=== PATIENT | male | born 1965 | race Caucasian/White ===

== ENCOUNTER 2024-03-16 08:03 | Emergency (ER) | payer OTHER, SELFPAY ==
--- NOTE | 2024-03-16 08:12 | ED.EYEPROB ---
HPI - Eye Problem General Chief complaint: Eye Problems Stated complaint: Right Eye Problem Time Seen by Provider: 03/16/24 08:19 Source: patient, RN notes reviewed and old records reviewed Mode of arrival: ambulatory Limitations: no limitations History of Present Illness HPI Narrative: 58 year old male presents to [facility] care with complaints of right eye irritation and watering. He states that he thought he had an eyelash in his right eye last week on Friday and his washed his eye out and it felt better. Patient reports that his eye has continued to feel irritated at times, no sharp pain to his eye or any change in his vision. Patient reports that he flushed his eye again last night and also used some Visine feels some irritation.Visual acuity bilateral eyes 20/30 without correction. MD chief complaint: eye redness Onset (ago): week(s) (1) Onset description: gradual Location: right eye Eye Symptoms: redness and other (watering) Severity: mild Treatments Prior to Arrival: irrigated eye and OTC eye drops Related Data Home Medications Medication Instructions Recorded Confirmed lansoprazole 30 mg capsule,delayed mg 03/16/24 release lisinopril 10 mg tablet mg 03/16/24 meloxicam 15 mg tablet mg 03/16/24 rosuvastatin 5 mg tablet mg 03/16/24 Allergies Allergy/AdvReac Type Severity Reaction Status Date / Time No Known Allergies Allergy Verified 03/16/24 08:15 Review of Systems Review of Systems: CONSTITUTIONAL: Denies fever, chills, or sweats. EYES: Denies visual changes. Reports redness, irritation, watering of right eye, denies any sharp pain to right eye or vision changes. ENT: Denies rhinorrhea, congestion, sore throat, or otalgia. CARDIOVASCULAR: Denies chest pain, palpitations, or edema. RESPIRATORY: Denies cough or dyspnea. SKIN: Denies rash or itching. NEUROLOGIC: Denies headache All systems reviewed & are unremarkable except as noted in HPI and below PMFSH Past Medical History Medical History (Updated 03/16/24 @ 10:18 by Yandy Villafuerte NP) GERD (gastroesophageal reflux disease) Hyperlipidemia Hypertension Social History Social History (Updated 03/16/24 @ 10:19 by Yandy Villafuerte NP) Smoking status: Never smoker Alcohol intake: current Alcohol use details: rare use Substance use type: does not use Gender identity (if verbalized by the patient): Male Comments At time of signature, agree with nursing past medical, surgical, social and family history. There is no relevant family history pertinent to the presenting complaint Exam Narrative: GENERAL: Well-appearing, well-nourished, and in no acute distress. HEAD: Normocephalic, atraumatic. EYES: PERRLA and EOMI. Upper and lower eyelids unremarkable. No periorbital cellulitis noted. Sclera irritated right eye and conjunctivae clear, no drainage noted, see procedure note visual acuity 20/30 bilateral eyes without any correction. no drainage from right eye noted ENT: Nares clear, no rhinorrhea or epistaxis. Mucous membranes moist. NECK: Supple.no lymphadenopathy CHEST: Clear to auscultation. No respiratory distress.SAO2 98% on room air HEART: Regular rate and rhythm. No murmur heard. Normal peripheral pulses. SKIN: Warm, dry, no rash. NEURO: No focal deficits. Alert and oriented x3. Course Course Emergency Course: Patient is aware of diagnosis, understands and agrees to treatment plan. Anticipatory guidance given. Patient agrees to follow-up as directed and is aware of reasons to seek care at the emergency department. Portions of this record may have been created with voice recognition software Level of Care: Express Care Visit Vital Signs Vital signs: Vital Signs Temperature 36.4 C L 03/16/24 08:13 Pulse Rate 73 03/16/24 08:13 Respiratory Rate 16 03/16/24 08:13 Blood Pressure 156/86 H 03/16/24 08:13 Pulse Oximetry 98 03/16/24 08:13 Oxygen Delivery Room Air 03/16/24 08:13 Temperat
[2024-03-16 08:13] VITALS: BP 156/86; PULSE 73; RESP 16; TEMP 36.4; O2SAT 98
== END 2024-03-16 08:52 | disposition home or self-care (01) ==
PROVIDERS: Emergency Provider Registered Nurse
DX: S05.01XA Injury of conjunctiva and corneal abrasion without foreign body, right eye, initial encounter (principal); X58.XXXA Exposure to other specified factors, initial encounter; K21.9 Gastro-esophageal reflux disease without esophagitis; E78.5 Hyperlipidemia, unspecified; I10 Essential (primary) hypertension
CPT/HCPCS: 99213; A9270; G0463